=== PATIENT | male | born 1940 | race Hispanic/Latino ===

== ENCOUNTER 2022-10-28 20:17 | Observation (INO) | payer OTHER ==
[2022-10-28 21:22] LABS: #Basophils 0.1 10x3/uL (0.0-0.2); #Eosinphils 0.1 10x3/uL (0.0-0.5); #Monocytes 0.3 10x3/uL (0.0-1.1); #Neutrophils 2.9 10x3/uL (1.5-8.4); %Eosinophils 2.4 % (0.0-6.0); %Lymphocytes 31.2 % (18.0-47.0); %Monocytes 5.9 % (0.0-10.0); %Neutrophils 59.1 % (40.0-75.0); Hemoglobin 13.4 g/dL (13.5-17.5); Mean Corpuscular Hemoglobin 28.3 pg (27.0-33.0); Mean Corpuscular Volume 88.4 fl (81.2-95.1); Mean Platelet Volume 9.6 fl (7.4-10.4); Platelet Count 152 10x3/uL (150-450); RBC Distribution Width 15.1 % (11.5-14.5); Red Blood Cell (RBC) Count 4.74 10x6/uL (4.32-5.72); White Blood Cell (WBC) Count 5.2 10x3/uL (3.5-10.5)
[2022-10-28 21:33] LABS: ALT (SGPT) 19 U/L (8-55); Albumin 3.5 g/dL (3.4-4.8); Alkaline Phosphatase 56 U/L (40-110); Anion Gap 14 mmol/L (10-20); BUN (Urea Nitrogen) 15 mg/dL (8.4-25.7); Bilirubin, Total 0.6 mg/dL (0.2-1.2); Calc. Creatinine Clearance 0 mL/min (70-130); Calcium 8.5 mg/dL (7.8-10.44); Carbon Dioxide 24 mmol/L (23-31); Chloride 105 mmol/L (98-107); Estimated GFR 93; Globulin 3.5 g/dL (2.4-3.5); Glucose 96 mg/dL (83-110); Sodium 139 mmol/L (136-145)
[2022-10-28 21:34] LABS: AST (SGOT) 31 U/L (5-34)
[2022-10-28 23:39] LABS: SARS-CoV-2 NAA Rapid Test Not Detected (NotDetected)
[2022-10-28] MEDS ORDERED: Ondansetron PF 4 MG/2 ML Vial IVP PRN (23:43)
[2022-10-28] MEDS ORDERED: Acetaminophen 325 MG TAB PO PRN (23:43)
[2022-10-28] MEDS ORDERED: Guaifenesin DM 100-10/5 ML UDCUP PO PRN (23:43)
[2022-10-28] MEDS ORDERED: Senokot S 8.6-50 MG TAB PO PRN (23:43)
[2022-10-28] MEDS ORDERED: Calcium Carbonate 500 MG ChewTAB PO PRN (23:43)
[2022-10-28] MEDS ORDERED: Nitroglycerin 0.4 MG TAB (25 Tab Bottle) SL PRN (23:45)
[2022-10-29 00:26] VITALS: BMI 19.3
[2022-10-29] MEDS ORDERED: Atropine Sulfate 1 mg/10 ml Syringe ONE (02:50)
[2022-10-29 03:55] LABS: Cardiac Risk 3.1 (Less than 4.5)
[2022-10-29] MEDS: Hydrochlorothiazide 25 MG TAB PO SCH (09:15)
[2022-10-29] MEDS: FLUoxetine HCl 20 MG CAP PO SCH (09:15)
[2022-10-29] MEDS: Lisinopril 20 MG TAB PO SCH (09:15)
[2022-10-29] MEDS: Aspirin 81 mg Enteric Coated Tablet PO SCH (09:15)
[2022-10-29] MEDS: Aripiprazole 10 MG TAB PO SCH (09:15)
[2022-10-29] MEDS ORDERED: Aspirin 81 mg Enteric Coated Tablet ONE (09:17)
[2022-10-30] MEDS ORDERED: FLU VACC QS2022-23(65YR UP)/PF 240 MCG/0.7 ML SYRINGE IM ONE (02:15)
[2022-10-30 04:23] LABS: #Eosinphils 0.1 10x3/uL (0.0-0.5); #Monocytes 0.2 10x3/uL (0.0-1.1); #Neutrophils 2.6 10x3/uL (1.5-8.4); %Basophils 0.9 % (0.0-2.0); %Eosinophils 2.2 % (0.0-6.0); %Lymphocytes 35.1 % (18.0-47.0); %Monocytes 4.5 % (0.0-10.0); %Neutrophils 57.1 % (40.0-75.0); Hemoglobin 13.6 g/dL (13.5-17.5); Mean Corpuscular HGB CONC 32.8 g/dL (32.0-36.0); Mean Corpuscular Hemoglobin 28.4 pg (27.0-33.0); Mean Corpuscular Volume 86.6 fl (81.2-95.1); Mean Platelet Volume 9.4 fl (7.4-10.4); Platelet Count 161 10x3/uL (150-450); RBC Distribution Width 14.9 % (11.5-14.5); Red Blood Cell (RBC) Count 4.79 10x6/uL (4.32-5.72); White Blood Cell (WBC) Count 4.6 10x3/uL (3.5-10.5)
[2022-10-30 04:33] LABS: Anion Gap 13 mmol/L (10-20); BUN (Urea Nitrogen) 18 mg/dL (8.4-25.7); Calc. Creatinine Clearance 64 mL/min (70-130); Calcium 8.6 mg/dL (7.8-10.44); Carbon Dioxide 27 mmol/L (23-31); Chloride 103 mmol/L (98-107); Estimated GFR 93; Glucose 94 mg/dL (83-110); Potassium 3.5 mmol/L (3.5-5.1); Sodium 139 mmol/L (136-145)
[2022-10-30] MEDS: Lisinopril 20 MG TAB PO SCH (09:42)
[2022-10-30] MEDS: Aripiprazole 10 MG TAB PO SCH (09:42)
[2022-10-30] MEDS: Aspirin 81 mg Enteric Coated Tablet PO SCH (09:42)
[2022-10-30] MEDS: Hydrochlorothiazide 25 MG TAB PO SCH (09:42)
[2022-10-30] MEDS: FLUoxetine HCl 20 MG CAP PO SCH (09:47)
[2022-10-30] MEDS ORDERED: Potassium Chloride 20 MEQ TAB PO SCH (10:00)
[2022-10-30] MEDS ORDERED: Warfarin Sodium 5 MG TAB PO ONE (10:33)
[2022-10-30 12:43] LABS: Prothrombin Time 10.9 sec (9.5-12.1)
[2022-10-30] MEDS ORDERED: Warfarin Sodium 5 MG TAB PO SCH (17:00)
[2022-10-30 18:37] VITALS: BP 119/62; TEMP 97.5
== END 2022-10-30 18:30 ==
LOC: CSHERS 20:17 → CSHERHOLD 23:55 → EEVIPCON 23:55 → INTOOBSV 23:55 → CSHTELE 10-29 20:21 → UNDODISOB 10-30 12:40
PROVIDERS: ADMIT Family Medicine; ATTEND Family Medicine
DX: R07.9 Chest pain, unspecified (principal); I48.91 Unspecified atrial fibrillation; I10 Essential (primary) hypertension; Z20.822 Contact with and (suspected) exposure to COVID-19; Z79.82 Long term (current) use of aspirin; Z79.899 Other long term (current) drug therapy
CPT/HCPCS: 36415; 71045; 80048; 80053; 80061; 83735; 84443; 84484; 85025; 85610; 93005; 93306; 94760; 96372; 96374; G0378; J0461; J1650; U0002

== ENCOUNTER 2023-02-10 10:03 | Emergency (ER) | payer OTHER ==
[~2023-02-10 10:03] MED LIST: Iopamidol 300 61% 100 ML VIAL FS ONE
[2023-02-10 10:42] LABS: #Monocytes 0.4 10x3/uL (0.0-1.1); %Basophils 0.5 % (0.0-2.0); %Eosinophils 0.3 % (0.0-6.0); %Lymphocytes 14.4 % (18.0-47.0); %Monocytes 4.3 % (0.0-10.0); %Neutrophils 80.2 % (40.0-75.0); Hemoglobin 13.5 g/dL (13.5-17.5); Mean Corpuscular HGB CONC 32.2 g/dL (32.0-36.0); Mean Corpuscular Hemoglobin 29.1 pg (27.0-33.0); Mean Corpuscular Volume 90.3 fl (81.2-95.1); Platelet Count 266 10x3/uL (150-450); RBC Distribution Width 13.5 % (11.5-14.5); Red Blood Cell (RBC) Count 4.64 10x6/uL (4.32-5.72); White Blood Cell (WBC) Count 8.8 10x3/uL (3.5-10.5)
[2023-02-10 10:56] LABS: ALT (SGPT) 26 U/L (8-55); AST (SGOT) 28 U/L (5-34); Albumin 3.7 g/dL (3.4-4.8); Alkaline Phosphatase 83 U/L (40-110); Anion Gap 13 mmol/L (10-20); BUN (Urea Nitrogen) 29 mg/dL (8.4-25.7); Bilirubin, Total 0.8 mg/dL (0.2-1.2); Calc. Creatinine Clearance 0 mL/min (70-130); Calcium 8.9 mg/dL (7.8-10.44); Carbon Dioxide 27 mmol/L (23-31); Chloride 105 mmol/L (98-107); Estimated GFR 89; Globulin 3.2 g/dL (2.4-3.5); Glucose 122 mg/dL (83-110); Lipase 28 U/L (8-78); Potassium 4.3 mmol/L (3.5-5.1); Protein, Total 6.9 g/dL (5.8-8.1); Sodium 141 mmol/L (136-145)
[2023-02-10 11:01] LABS: INR-International Normal Ratio 4.7; PTT 43.9 sec (22.0-33.0); Prothrombin Time 48.9 sec (9.5-12.1)
[2023-02-10] MEDS ORDERED: cefTRIAXone (ROCEPHIN) 2 GM VIAL ONE (16:24)
[2023-02-10 18:07] LABS: Bilirubin Neg (Negative); Blood, Urine 250 (Negative); Clarity Cloudy (Clear); Glucose, Urine (Dipstick) Normal (Negative); Ketone, Urine Negative (Negative); Leukocyte 100 (Negative); Nitrite Negative (Negative); Protein, Urine (Dipstick) 100 mg/dl (Neg-Trace); Specific Gravity, Urine 1.005 (1.005-1.030); Urobilinogen Normal mg/dL (Less than 2)
[2023-02-10 18:13] LABS: CAUTI Indications for Culture Urological Procedure; RBC/HPF Greater than 50 HPF (0-3); Squamous Epithelial 0-3 HPF (0-3)
[2023-02-10 18:14] LABS: Bacteria/HPF 1+ HPF (None Seen)
[2023-02-10 18:15] LABS: Urine Culture Reflex Yes Yes
== END 2023-02-10 18:55 ==
LOC: EEVIPCON 10:03 → CSHERS 10:03
DX: N30.01 Acute cystitis with hematuria (principal); N32.89 Other specified disorders of bladder; I10 Essential (primary) hypertension
CPT/HCPCS: 36415; 71045; 74177; 80053; 81001; 83605; 83690; 83735; 84484; 85025; 85610; 85730; 87077; 87086; 87186; 93005; 94760; J0696; Q9967